=== PATIENT | female | born 1930 | race Caucasian/White ===

== ENCOUNTER 2017-03-30 10:41 | Day surgery (SDC) | payer MEDICARE ==
[~2017-03-30] VITALS: Ht 160 cm; Wt 61.6 kg
[2017-03-30 11:29] VITALS: BP 144/85
[2017-03-30] MEDS ORDERED: LACTATED RINGERS 1,000 ML IV SCH (11:32)
[2017-03-30] MEDS ORDERED: LOVA40TA2 PO (12:01)
[2017-03-30] MEDS ORDERED: LISINOPRIL PO (12:01)
[2017-03-30 12:06] LABS: ASPARTATE AMINO TRANSFERASE 13 U/L (15-37); BLOOD UREA NITROGEN 25 mg/dL (7-18)
[2017-03-30] MEDS ORDERED: FENTANYL PF 250 MCG/5ML ONE (12:17)
[2017-03-30] MEDS ORDERED: MIDAZOLAM 1 MG/ML, 2ML ONE (12:17)
[2017-03-30] MEDS ORDERED: BACITRACIN OINT 500U/GM, 15 GM ONE (12:28)
[2017-03-30] MEDS ORDERED: BUPIVACAINE/PF 0.25% ONE (12:28)
[2017-03-30] MEDS ORDERED: BUPIVACAINE/PF 0.5% ONE (12:28)
[2017-03-30] MEDS ORDERED: EPINEPHRINE 1 MG/ML, 1ML ONE (12:33)
[2017-03-30] MEDS ORDERED: PROPOFOL 10 MG/ML, 20ML ONE (12:58)
[2017-03-30] MEDS ORDERED: CEFAZOLIN 1,000 MG ONE (12:58)
[2017-03-30] MEDS ORDERED: ONDANSETRON 2MG/ML, 2ML ONE (12:58)
[2017-03-30] MEDS ORDERED: HYDROmorphone 1 MG/ML, 1ML IV PRN (14:00)
[2017-03-30] MEDS ORDERED: ALBUTEROL SULFATE 2.5 MG/3 ML NPPB PRN (14:00)
[2017-03-30] MEDS ORDERED: ACETAMINOPHEN 325 MG TABLET PO PRN (14:00)
[2017-03-30] MEDS ORDERED: hydrALAzine 20 MG/ML, 1ML IV PRN (14:00)
[2017-03-30] MEDS ORDERED: METOPROLOL 1 MG/ML, 5ML IV PRN (14:00)
[2017-03-30] MEDS ORDERED: OXYcodone 5 MG/5 ML ORAL.SOL UDC PO PRN (14:00)
[2017-03-30] MEDS ORDERED: HALOPERIDOL 5 MG/ML IV ONE (14:00)
[2017-03-30] MEDS ORDERED: hydrALAzine 20 MG/ML, 1ML ONE (14:18)
[2017-03-30] MEDS ORDERED: FENTANYL PF 100 MCG/2ML ONE (14:25)
[2017-03-30] MEDS ORDERED: OXYcodone 5 MG/5 ML ORAL.SOL UDC ONE (14:25)
[2017-03-30] MEDS: FENTANYL PF 100 MCG/2ML IV PRN ×2 (14:29→14:38)
== END 2017-03-30 17:12 ==
LOC: OUT 10:41
PROVIDERS: ATTEND Orthopaedic Surgery
DX: S52.572A Other intraarticular fracture of lower end of left radius, initial encounter for closed fracture (principal); I10 Essential (primary) hypertension; E78.5 Hyperlipidemia, unspecified; Z87.891 Personal history of nicotine dependence; X58.XXXA Exposure to other specified factors, initial encounter; Y93.89 Activity, other specified; Y92.89 Other specified places as the place of occurrence of the external cause; Y99.8 Other external cause status
CPT/HCPCS: 25609; 36415; 73100; 76000; 80053; 93005; C1713; J0171; J0360; J0690; J2250; J2405; J2704; J3010; J3490